=== PATIENT | male | born 1945 | race Caucasian/White ===

== ENCOUNTER 2020-02-17 10:09 | Outpatient (REF) | payer MEDICARE, SELFPAY ==
--- NOTE | 2020-02-17 10:09 | CT_ITS ---
EXAMINATION: CT ABDOMEN AND PELVIS WITH CONTRAST CLINICAL INFORMATION: Liver lesion. COMPARISON: CT 11/07/2019. TECHNIQUE: Multidetector volumetric images were obtained from the superior aspect of the liver through the pubic symphysis following administration 85 mL of Omnipaque 350 intravenous contrast. Sagittal and coronal reformatted images were obtained on the technologist's workstation. Oral Contrast: No. This CT examination was performed using dose optimization techniques as appropriate, variously including the following: *Automated exposure control. *Adjustment of mA and/or kV according to patient size (this includes techniques or standardized protocols for targeted exams where dose is matched to indication/reason for exam; i.e. extremities or head). *Use of iterative reconstruction technique. DLP: 341 mGy-cm FINDINGS: LUNG BASES: Bibasilar atelectasis. No pericardial or pleural effusion. LIVER, GALLBLADDER, AND BILIARY TREE: Ill-defined heterogeneously enhancing low density lesion in the right lobe of the liver measures 5.6 cm transverse, 5.7 cm AP, 5.4 cm craniocaudal. This previously measured 4.2 cm transverse, 4.1 cm AP, 4.3 cm craniocaudal by today's measurements. Status post cholecystectomy. PANCREAS: Unremarkable. SPLEEN: Unremarkable. ADRENAL GLANDS: Unremarkable. KIDNEYS AND URETERS: A 3.2 cm left renal cyst. No calculi. No hydronephrosis. BLADDER: Redemonstrated is circumferential bladder wall thickening and irregularity. GASTROINTESTINAL TRACT: There has been interval surgery, with resection of the right colon, and surgical staple. Scattered colonic diverticulosis. The left colon and sigmoid colon are collapsed with wall thickening, probably related to underdistention. No dilated small bowel loops. Stomach is partially distended. ABDOMINAL WALL: No significant hernia is appreciated. LYMPH NODES: No adenopathy is identified. VASCULAR: Severe atherosclerotic vascular calcification. PELVIC VISCERA: Unremarkable. OSSEOUS STRUCTURES: No suspicious osseous abnormality. Severe multifocal disc degenerative changes in the visualized thoracolumbar spine. IMPRESSION: 1. The known lesion in segment 7 of the liver has increased in size currently measuring 5.6 x 5.7 x 5.4 cm. Findings concerning for worsening of metastatic disease. 2. Interval surgery, with resection of the previously noted lesion in the cecum. 3. Redemonstrated circumferential urinary bladder wall thickening and irregularity. Please correlate with urinalysis.
[2020-02-17] MEDS: iohexoL 350 MG/ML 100 ML INFUS..BTL 85 ML IV (11:30)
== END 2020-02-17 10:10 | disposition home or self-care (01) ==
LOC: HO.CT 10:09
PROVIDERS: Visit Provider Surgery
DX: K76.9 Liver disease, unspecified (principal)
CPT/HCPCS: 74177

== ENCOUNTER → 2020-03-01 13:46 | Outpatient (BNVA) | payer MEDICARE, SELFPAY | PROVIDERS: PCP Family Medicine; Visit Provider Surgery | DX: R16.0 Hepatomegaly, not elsewhere classified (principal) | CPT/HCPCS: 99213 ==

== ENCOUNTER 2020-03-15 10:13 | Outpatient (REF) | payer MEDICARE, SELFPAY ==
[2020-03-15 12:00] LABS: Mean Corpuscular HGB Conc 34.1 g/dl (31.0-36.0); Mean Corpuscular Hemoglobin 31.5 pg (27.0-33.0); Mean Corpuscular Volume 92.3 fL (80-98); Mean Platelet Volume 10.9 fL (9.4-12.4); Platelet Count 193 X10*3/uL (160-400); Red Blood Count 4.44 X10*6/uL (4.60-5.80); Red Cell Distribution Width 12.5 % (11.0-16.0); White Blood Count 6.2 X10*3/uL (4.8-10.8)
[2020-03-15 12:14] LABS: Prothrombin Time 12.3 SEC (10.8-13.0)
== END 2020-03-15 10:14 | disposition home or self-care (01) ==
LOC: HO.LAB 10:13
PROVIDERS: Visit Provider Surgery
DX: R16.0 Hepatomegaly, not elsewhere classified (principal)
CPT/HCPCS: 36415; 85027; 85610

== ENCOUNTER 2020-03-17 11:20 | Day surgery (SDC) | payer MEDICARE, SELFPAY ==
--- NOTE | 2020-03-17 12:42 | US_ITS ---
EXAMINATION: ULTRASOUND-GUIDED LIVER BIOPSY CLINICAL INFORMATION: Liver lesion. History of colon cancer. COMPARISON: Previous CT of the abdomen and pelvis most recent 02/17/2020 TECHNIQUE: Procedure and risks and benefits including bleeding and infection were discussed with the patient and informed consent was obtained. The patient was positioned in the slight left decubitus position. The right upper quadrant was prepped and draped in the usual sterile fashion. The skin and soft tissues were anesthetized with 1% lidocaine plain. Using ultrasound guidance and a coaxial system, access to the inferior margin of the mass in the high right lobe of the liver to the diaphragm was obtained. 3 20-gauge core biopsies were obtained. There is no complication. The patient received Versed 1 mg and fentanyl 50 mcg intravenously during the procedure. Total sedation time was 20 minutes. FINDINGS: There is a 4.8 x 4.4 x 5 cm heterogeneous predominantly solid hyperechoic lesion with small cystic areas that was targeted for biopsy. There is no complication. US/US biopsy liver IMPRESSION: CT-guided liver biopsy.
--- NOTE | 2020-03-17 13:49 | HO.RADPN ---
RADIOLOGY Narrative Narrative: Right lobe liver biopsy using coaxial system. 3 20g core biopsies obtained. No complication.
[2020-03-17 13:55] VITALS: BP 119/48; PULSE 59; RESP 18; TEMP 36.3; O2SAT 96
[2020-03-17 14:10] VITALS: BP 107/50; PULSE 55; RESP 18; O2SAT 95
[2020-03-17] MEDS: Lidocaine HCl 1 % MPF 5 ML VIAL SUBCUT (14:11)
[2020-03-17 14:40] VITALS: BP 114/49; PULSE 56; RESP 20; O2SAT 96
[2020-03-17 15:10] VITALS: BP 103/52; PULSE 56; RESP 20; O2SAT 95
[2020-03-17 15:40] VITALS: BP 127/55; PULSE 52; RESP 20; O2SAT 96
== END 2020-03-17 15:59 | disposition home or self-care (01) ==
PROVIDERS: Radiology Diagnostic Radiology; PCP Family Medicine; Visit Provider Surgery
DX: C22.0 Liver cell carcinoma (principal); I10 Essential (primary) hypertension; E11.9 Type 2 diabetes mellitus without complications; E78.5 Hyperlipidemia, unspecified; Z90.49 Acquired absence of other specified parts of digestive tract; Z87.891 Personal history of nicotine dependence; Z79.84 Long term (current) use of oral hypoglycemic drugs; Z79.899 Other long term (current) drug therapy
CPT/HCPCS: 47000; 76942; 88307; 88313; 88341; 88342; J2250; J3010

== ENCOUNTER → 2020-03-25 13:52 | Outpatient (BNVA) | payer MEDICARE, SELFPAY | PROVIDERS: PCP Nurse Practitioner Family; Visit Provider Surgery | DX: C22.0 Liver cell carcinoma (principal); Z98.890 Other specified postprocedural states | CPT/HCPCS: 99212 ==

== ENCOUNTER 2020-04-12 08:12 | Outpatient (REF) | payer MEDICARE, SELFPAY ==
--- NOTE | 2020-04-12 08:19 | CT_ITS ---
EXAMINATION: CT CHEST WITH CONTRAST CLINICAL INFORMATION: Staging. History of hepatocellular carcinoma and colon cancer. COMPARISON: X-ray December 2019 TECHNIQUE: Multidetector volumetric CT imaging of the chest was obtained after the administration of 165 mL of Omnipaque 350 intravenous contrast without immediate adverse reactions. Axial MIP volume rendering provided. Sagittal and coronal reformatted images were obtained. This CT examination was performed using dose optimization techniques as appropriate, variously including the following: *Automated exposure control *Adjustment of mA and/or kV according to patient size (this includes techniques or standardized protocols for targeted exams where dose is matched to indication/reason for exam; i.e. extremities or head) *Use of iterative reconstruction technique DLP: 133 mGy-cm FINDINGS: BACKSIDE GRINDER: LUNGS: There is mild paraseptal emphysema. There is a 3 mm left upper lobe nodule axial image 99 series 5. There are increased linear or reticular markings in the posterior right upper lobe. There is a subsegmental atelectasis seen in the inferior segment of the lingula. MEDIASTINUM: There is low-attenuation seen in the anterior superior mediastinum anterior to the aortic arch. This area measures 1 x 1 x 2.6 cm in AP transverse and longitudinal dimension. Again this is low in attenuation with Hounsfield units measuring 26. Appearance is questionable for a low-attenuation lymph node. Differential would include a thymic lesion. There are other small mediastinal lymph nodes. The heart does not appear enlarged. There is moderate coronary artery calcification. There is no pericardial effusion. The thoracic aorta is normal in caliber. The visualized thyroid gland is unremarkable. PLEURA: There is bilateral paravertebral pleural calcification. No pleural mass or effusion pleural effusion is seen. AXILLA: No lymphadenopathy. UPPER ABDOMEN: There is a heterogeneous partially solid partially cystic lesion in the right lobe of the liver that measures 5.5 cm. OSSEOUS STRUCTURES: There are degenerative changes of the spine. CT/CT chest w con IMPRESSION: Mild emphysema. Small 3 mm left upper lobe nodule. Lingular atelectasis. Low-attenuation soft tissue in the anterior superior mediastinum overlying the aortic arch measuring 1 x 1 x 2.6 cm. Differential would include a low-attenuation lymph node and thymic lesion. Significant coronary artery calcification. Mild bilateral pleural calcification.
[2020-04-12] MEDS: iohexoL 350 MG/ML 100 ML INFUS..BTL 65 ML IV (09:12)
== END 2020-04-12 08:13 | disposition home or self-care (01) ==
LOC: HO.CT 08:12
PROVIDERS: PCP Nurse Practitioner Family; Visit Provider Internal Medicine
DX: C22.0 Liver cell carcinoma (principal)
CPT/HCPCS: 71260; Q9967

== ENCOUNTER → 2024-01-02 10:54 | Outpatient (RCR) | payer MEDICARE, SELFPAY ==
[2020-03-30 14:08] VITALS: BMI 27.3
[2020-03-30 14:17] VITALS: BP 152/94; PULSE 61; RESP 18; TEMP 36.6; O2SAT 98
--- NOTE | 2020-03-30 14:47 | P.CNHO_ITS ---
Subjective - Subjective Chief complaint: Liver cancer Consult date: 03/30/20 Requesting Physician: Dr. Suhas Slaughter. Primary Care Provider: Alin Kraft NP HPI - Consult Narrative Reason for consult: Hepatocellular carcinoma Narrative: Luigi Medellin is a 74 year old male who is referred for recent diagnosis of hepatocellular carcinoma. He presented in November of 2019 with complaints of lower abdominal pain, imaging with CT scan revealed an exophytic polypoid enhancing mass measuring 4.1 x 4.1 cm in the cecum. Liver showed a new ill-defined multilobular low-density lesion measuring 4.4 x 4.1 cm this was read as concerning for malignancy. He underwent resection on 12/02/2019 which revealed a cecal ulcer with granulation tissue, no evidence of inflammatory bowel disease or malignancy. CMV negative. Because of the abnormal liver findings he had a repeat CT scan in February, and a subsequent biopsy which revealed hepatocellular carcinoma. Patient is here for further recommendations. He states that after surgery in November he lost weight but he is now stable. He has gained some weight and his appetite is fairly good. He denies any abdominal pain, nausea or significant change in bowel habits. He denies any chest pain, cough or shortness of breath. No fever or chills. He denies any recent infections. He drinks beer on [employer]. He quit smoking more than 30 years ago. Review of Systems - Constitutional Reports no additional constitutional complaints, Denies fatigue, Denies lack of energy, Denies night sweats - Cardiovascular Denies no additional cardiovascular complaints - Respiratory Denies no additional respiratory complaints - Gastrointestinal Denies no additional gastrointestinal complaints - Genitourinary Genitourinary: Denies blood in urine - Integumentary/Breasts Skin/Breast: Reports no additional skin complaints Oncology Screenings - ECOG Performance Status ECOG Performance Status: 1 [facility] Medical History: Medical History (Last Updated 03/30/20 @ 14:18 by Lexus Mendes) Cancer, hepatocellular Carotid artery plaque Diabetes Hyperlipidemia Hypertension Liver mass Presence of stent in artery Family History: Family History (Last Updated 03/30/20 @ 14:20 by Lexus Mendes) Mother Diabetes Heart disease Brother Diabetes AAA (abdominal aortic aneurysm) Surgical History: Surgical History (Last Reviewed 03/25/20 @ 14:26 by Suhas Slaughter MD) History of cholecystectomy History of colon resection Onset Date: ~12/02/19 History of colonoscopy Onset Date: ~11/14/19 History of laparoscopic appendectomy Smoking status: Former smoker Home Medications and Allergies Home Medications Medication Instructions Recorded Confirmed Type amlodipine 10 mg tablet 10 mg PO DAILY 03/01/20 03/30/20 History aspirin 81 mg tablet 81 mg PO DAILY 03/01/20 03/30/20 History lisinopril 40 mg tablet 40 mg PO DAILY 03/01/20 03/30/20 History metformin 500 mg tablet 500 mg PO BID 03/01/20 03/30/20 History rosuvastatin 5 mg tablet 5 mg PO DAILY 03/01/20 03/30/20 History Allergies Allergy/AdvReac Type Severity Reaction Status Date / Time No Known Allergies Allergy Unverified 03/25/20 14:03 [No Known Allergies*] Physical Exam Vital signs: Vital Signs Temp 97.9 F 03/30/20 14:17 Pulse 61 03/30/20 14:17 Resp 18 03/30/20 14:17 BP 152/94 H 03/30/20 14:17 Pulse Ox 98 03/30/20 14:17 Intake & Output 03/29/20 03/30/20 03/30/20 18:59 06:59 18:59 Other: Weight 72.4 kg Weight 72.4 kg - Constitutional Present: no acute distress - Routine HEENT Exam Head: Present: normal inspection Eye: Present: EOMI - Routine Neck Exam Present: supple. Absent: lymphadenopathy - Routine Respiratory Exam Present: CTAB - Routine Cardiovascular Exam Cardiovascular: Present: RRR, S1, S2 - Routine Abdominal Exam Present: soft. Absent: tenderness - Routine Extremities Exam Absent: joint swelling - Routine Skin Exam Present: intact. Absent: cyanosis, erythema - Routine Neurological Exam Present: oriented X3 Assessment and Plan (1) Cancer, hepatocellular Status: Acute 1. This is a 74-year-old male recently diagnosed hepatocellular carcinoma involving right lobe of liver and measuring 5.6 x 5.7 x 5.4 cm. Well- differentiated hepatocellular carcinoma on core biopsy of liver lesion. On ul trasound it measures about 5 cm in largest diameter. He has no risk factors such as liver cirrhosis, hepatitis or alcoholism. He had normal liver functions previously, repeat blood work including PT INR/alpha fetoprotein levels, hepatitis serologies are pending. I have ordered CT chest with contrast for staging. Hopefully he has disease limited to the liver and could be a candidate for resection or local liver directed therapy such as TACE/chemo embolization procedures. His has already made him an appointment with medical oncologist at [facility] for 2nd opinion. I have discussed referral to liver surgeon and intervention radiologist at [facility]. They are agreeable to the above plan.
--- NOTE | 2020-03-30 15:49 | MHC.HEMONCMA ---
Order for CT of chest with contrast for staging of [facility]
[2020-03-30 15:53] LABS: INTERNATIONAL NORM RATIO 1.1 (0.9-1.1); Prothrombin Time 12.6 SEC (10.8-13.0)
[2020-03-30 16:14] LABS: Alanine Aminotransferase 20 U/L (0-40); Albumin Level 4.6 g/dL (3.5-5.0); Alkaline Phosphatase 39 U/L (39-117); Anion Gap 14 (12-20); Aspartate Amino Transferase 17 U/L (5-37); Bilirubin Total 0.4 mg/dL (0.0-1.0); Blood Urea Nitrogen 16 mg/dL (9-16); Calcium 9.9 mg/dL (8.4-10.2); Carbon Dioxide 25 mmol/L (22-29); Chloride 102 mmol/L (96-108); Creatinine Clr Calc Pharmacy 60.9; Estimated Glomerular Filt Rate > 60; Glucose Random 89 mg/dL (60-115); Potassium 4.7 mmol/l (3.3-5.1); Sodium 136 mmol/L (135-145)
--- NOTE | 2020-03-30 16:38 | MHC.HEMONCSW ---
PT IS A 74 Y.O. MALE WHO IS INDEPENDENT AND ABLE TO MAKE NEEDS KNOWN. DIAGNOSIS IS LIVER CANCER. HE IS ACCOMPANIED BY . THEY WANT A SECOND OPINION SO DR. BERG IS REFERRING TO [facility] FOR BOTH RADIATION AND MEDICAL ONCOLOGY. PT REPORTS FEELING IN SHOCK ABOUT DISEASE. DISCUSSED FEELINGS, RESOURCES, REFUSES COUNSELING REFERRAL. HEALTH CARE PROXY COMPLETED, NAMED THEN DAUGHTER. EDUCATION, RESOURCES, GUIDANCE AND SUPPORT PROVIDED. PLAN; TREATMENT AT [facility].
[2020-03-31 07:57] LABS: HBc Num1 0.05 S/CO (0.00-0.79); Hepatitis B Core Antibody Nonreactive (Nonreactive); Hepatitis B Surface Antigen Negative (Negative)
[2020-03-31 08:14] LABS: HBS Num1 0.37 mIU/mL (0-7.99); Hepatitis A Antibody IgM 0.24 Index (0-0.79); ~HepC Num1 0.07 S/CO (0.00-0.79); ~Hepatitis A Antibody IgM Nonreactive (Nonreactive); ~Hepatitis B Surface Antibody NONREACTIVE (Nonreactive); ~Hepatitis C Antibody Nonreactive (Nonreactive)
--- NOTE | 2020-03-31 12:05 | MHC.HEMONC ---
Addendum entered by Josephine Cisneros RN 03/31/20 15:51: DR. Pelaez IR at [facility] called Dr Easley - he is requesting old surgical note from November from Dr. Slaughter, too. - this was faxed to [phone]. Receipt confirmed. Addendum entered by Josephine Cisneros RN 03/31/20 12:32: JOSEPHINE Felton at [facility] - first fax failed. He asked us to try fax # [phone]. Dr. Easley's consult note, Dr. Slaughter' note, US, CT, and Path report were all sent. Fax confirmation receipt received. Original Note: Dr. PELAEZ - Dr. Easley's office note faxed to [phone] per her request. She will text/call him to let him know to look for this fax.
[2020-04-02 10:57] LABS: Alpha Fetoprotein 2.2 ng/mL (<6.1)
--- NOTE | 2020-04-05 17:45 | MHC.HEMONC ---
Dr. Yip - T/Call follow up to Dr. Yip's office to see if they reached out to pt re: second opinion. Per staff they do not have anything on Mr. Medellin. They asked mr to fax any pertinent records again (see previous notes on this) to fax # [phone]. Dr. Easley's note, CT scan, Dr. Slaughter' note and surgical note, along w demographic sheet faxed to ATTN; MIRZA or Med. DERRELL Asst's for Dr. Yip.
== END | disposition home or self-care (01) ==
LOC: HO.ONC 03-30 13:58
PROVIDERS: PCP Nurse Practitioner Family; Referring Provider Surgery; Visit Provider Internal Medicine
DX: C22.0 Liver cell carcinoma (principal)
CPT/HCPCS: 36415; 80053; 82105; 85610; 86704; 86706; 86709; 86803; 87340; 99204